=== PATIENT | female | born 1955 | race Caucasian/White ===

== ENCOUNTER 2017-08-26 22:29 | Observation (INO) | payer BC ==
[2017-08-26] MEDS ORDERED: Nitroglycerin 2% Ointment 1 INCH/1 GM Packet ONE (22:49)
--- NOTE | 2017-08-26 23:01 | RAD ---
SINGLE VIEW OF THE CHEST 08/26/17 COMPARISON: 09/07/08 and 03/13/13. HISTORY: Dyspnea and chest pain. FINDINGS: Single view of the chest shows a normal sized cardiomediastinal silhouette. There is no evidence of c onsolidation, mass, or pleural effusion. The bones are unremarkable. IMPRESSION: No evidence of acute cardiopulmonary disease. POS: [facility]
[2017-08-26 23:44] LABS: CKMB 0.8 ng/mL (0-6.6); Troponin I Less than 0.010 ng/mL (< 0.028)
[2017-08-26 23:56] LABS: ALT (SGPT) 21 U/L (8-55); AST (SGOT) 13 U/L (5-34); Albumin 4.2 g/dL (3.4-4.8); Alkaline Phosphatase 67 U/L (40-150); Anion Gap 14 mmol/L (10-20); BUN (Urea Nitrogen) 11 mg/dL (9.8-20.1); Bilirubin, Total 0.3 mg/dL (0.2-1.2); CK (CPK) 66 U/L (29-168); Calc. Creatinine Clearance 0 mL/min (70-130); Calcium 9.3 mg/dL (7.8-10.44); Carbon Dioxide 21 mmol/L (23-31); Chloride 109 mmol/L (98-107); Estimated GFR-MDRD 82; Globulin 2.6 g/dL (2.4-3.5); Glucose 144 mg/dL (80-115); Lipase 23 U/L (8-78); Potassium 3.8 mmol/L (3.5-5.1); Protein, Total 6.8 g/dL (6.0-8.3); Sodium 140 mmol/L (136-145)
[2017-08-27] LABS: Band 2 % (5-11); Eosinophils 3 % (0-10); Hemoglobin 15.1 g/dL (12.0-16.0); Lymphocytes 33 % (21-51); MDiff Complete? YES; Mean Corpuscular HGB CONC 32.2 g/dL (32.0-36.0); Mean Corpuscular Hemoglobin 28.8 pg (27.0-31.0); Mean Corpuscular Volume 89.4 fl (81.0-99.0); Mean Platelet Volume 7.5 fL (7.4-10.4); Monocytes 7 % (0-10); Neutrophil 46 % (42-75); Platelet Count 345 thou/uL (130-400); RBC Distribution Width 11.9 % (11.5-14.5); Reactive Lymphocytes 9 % (0-10); Red Blood Cell (RBC) Count 5.24 mill/uL (4.20-5.40); White Blood Cell (WBC) Count 8.7 thou/uL (4.8-10.8)
[2017-08-27 03:21] VITALS: TEMP 97.8
[2017-08-27 03:31] LABS: Troponin I Less than 0.010 ng/mL (< 0.028)
[2017-08-27] MEDS ORDERED: Ondansetron ODT 4 MG TAB PO PRN (04:59)
[2017-08-27] MEDS ORDERED: Ibuprofen 200 MG TAB PO PRN (05:25)
--- NOTE | 2017-08-27 05:32 | HP ---
CHIEF COMPLAINT: Chest pain. HISTORY OF PRESENT ILLNESS: The patient is a 62-year-old female who presents with on and off chest p ain for the last 2 to 3 weeks. She was recently started on blood pressure medications and she is grayson ing 5 mg of Norvasc once a day. The patient describes chest pain as exertional and is accompanied by shortness of breath. Chest pain upon presentation to the ER was 10/10 and has improved with rest. The patient denied any diaphoresis. She has had some accompanying nausea as well. The patient state s that prior to this, the patient did not have any chest pain. She does have a family history with b oth her parents and her brothers and sisters with heart issues. PAST MEDICAL HISTORY: The patient is significant for lupus. PAST SURGICAL HISTORY: The patient has had cholecystectomy and hysterectomy. SOCIAL HISTORY: Negative for tobacco or alcohol use. ALLERGIES: The patient is allergic to CODEINE, SULFA, and TYLENOL. OUTPATIENT MEDICATIONS: The patient is on Norvasc 5 mg once a day. REVIEW OF SYSTEMS: Please see HPI. Rest of 14-point review of systems is negative. PHYSICAL EXAMINATION: VITAL SIGNS: Temperature is 97.8, pulse 70, respirations 14, blood pressure 146/68, patient satting 97% on room air. GENERAL: The patient is awake, alert, oriented x3, in no acute distress. HEENT: Pupils equal, round, reactive to light and accommodation. Extraocular muscles intact. TMs a re clear. No erythema in throat. NECK: No JVD, lymphadenopathy. HEART: Regular rate and rhythm. LUNGS: Clear to auscultation bilaterally. ABDOMEN: Positive bowel sounds. Soft, nontender, nondistended. EXTREMITIES: No clubbing, cyanosis or edema. LABORATORY AND X-RAY DATA: The patient's CBC, white count is 8.7, H and H 15 and 46 with a platelet of 345. Sodium is 140, potassium 3.8, chloride 109, bicarbonate 21, BUN 11, creatinine 0.7 with a tr oponin of less than 0.010. Lipase is 23. The patient's chest x-ray did not show any abnormalities. No pneumonias were seen. ASSESSMENT AND PLAN: 1. Chest pain. Continue with serial EKGs and enzymes. Further risk stratification depending on res ults. Continue on aspirin. 2. Hypertension. Continue on Norvasc and add beta blockers for better blood pressure control. 3. Code status: The patient is a FULL CODE.
[2017-08-27 05:54] LABS: Troponin I Less than 0.010 ng/mL (< 0.028)
[2017-08-27] MEDS ORDERED: Nitroglycerin 2% Ointment 1 INCH/1 GM Packet TOP SCH (06:00)
[2017-08-27] MEDS ORDERED: Aspirin 325 MG TAB PO SCH (09:00)
[2017-08-27] MEDS ORDERED: Metoprolol Tartrate 25 MG TAB PO SCH (09:00)
[2017-08-27] MEDS ORDERED: Famotidine 20 MG TAB PO SCH (09:00)
[2017-08-27] MEDS ORDERED: Enoxaparin Sodium 30 MG/0.3 ML SYRINGE SC SCH (09:00)
[2017-08-27] MEDS ORDERED: Aspirin 325 mg Enteric Coated Tablet PO SCH (09:00)
[2017-08-27] MEDS ORDERED: Amlodipine 5 MG TAB PO SCH ×2 (09:00→15:30)
[2017-08-27] MEDS ORDERED: ADENOSINE 60 MG/20 ML VIAL ONE (13:47)
--- NOTE | 2017-08-27 15:21 | DIS ---
DATE OF OBSERVATION: 08/26/2017 DATE OF DISCHARGE: 08/27/2017 PRIMARY CARE PHYSICIAN: Harjinder Rios M.D. DISCHARGE DIAGNOSES: 1. Noncardiac chest pain. 2. Hypertension. 3. Systemic lupus erythematosus. 4. Obesity. CONSULTATIONS: None. PROCEDURES: Nuclear stress test negative for reversible ischemia and negative for EKG changes. HOSPITAL COURSE: Ms. Flores is a 62-year-old female who presented to the emergency department 2 to 3 weeks off and on chest pain. She described the chest tightness. Workup in the ER was negative. We were called for admission. HOSPITAL COURSE: She was seen and examined. She was placed in observation with Dr. Sanjay Whalen over night. Serial cardiac biomarkers were negative. I took over the case in the morning. A stress test was ordered and it was negative for inducible ischemia. Blood pressure remained slightly elevated p ost-removal of nitro paste. Her Norvasc was increased to 10 mg. She was discharged home in stable c ondition with outpatient followup with Dr. Rios. She is supposed to call him on 08/29/2017 a [employer]. PHYSICAL EXAMINATION: The patient was seen and examined on the day of discharge. Discharge plan and disposition was discussed with the patient face to face with the family at the bed side. DISCHARGE MEDICATIONS: 1. Norvasc, increased to 10 mg p.o. daily. 2. Aspirin 81 mg [id number] recommended. Followup appointment with Dr. Rios. She is supposed to call his office 08/29/2017. DISCHARGE ACTIVITY: Per cardiopulmonary limits. DISCHARGE DIET: Heart healthy recommended. DISCHARGE CONDITION: Good. DISPOSITION: To be discharged home via private vehicle.
[2017-08-27 15:29] VITALS: BP 145/76
--- NOTE | 2017-08-27 15:40 | NM ---
NUCLEAR MEDICINE CARDIAC STRESS ONLY STUDY WITH EJECTION FRACTION AND WALL MOTION: 08/27/17 HISTORY: 62-year-old female with history of chest pain, shortness of breath and family history of coronary art kassidy disease. Exam was performed as Adenosine Sestamibi study. Patient was injected with 29.1 millicuries technetium 99m Sestamibi intravenously for stress only. No scan evidence for infarct or ischemia. LHR - 0.40. EDV - 70 mL. EF - 72%. Myocardial perfusion wall motion: Wall motion is unremarkable. IMPRESSION: Unremarkable cardiac stress only with unremarkable ejection fraction and wall motion. No scan eviden ce for infarct or ischemia. POS: [facility]
== END 2017-08-27 16:07 | disposition home or self-care (01) ==
LOC: SCSER 22:29 → 2SW 08-27 00:13
PROVIDERS: ADMIT Hospitalist; ATTEND Hospitalist
DX: R07.89 Other chest pain (principal); I10 Essential (primary) hypertension; M32.9 Systemic lupus erythematosus, unspecified; E66.9 Obesity, unspecified; Z68.36 Body mass index [BMI] 36.0-36.9, adult; Z88.5 Allergy status to narcotic agent; Z88.2 Allergy status to sulfonamides; Z88.6 Allergy status to analgesic agent; Z90.49 Acquired absence of other specified parts of digestive tract; Z90.710 Acquired absence of both cervix and uterus
CPT/HCPCS: 36415; 36416; 71045; 78452; 80053; 82553; 83690; 83880; 84484; 85025; 93005; 93017; 96372; A9500; G0378; J0153; J1650; Q0162

== ENCOUNTER 2019-11-22 17:39 | Observation (INO) | payer BC, OTHER ==
[2019-11-22] MEDS ORDERED: Nitroglycerin 2% Ointment 1 INCH/1 GM Packet ONE (18:01)
[2019-11-22] MEDS ORDERED: Aspirin Chewable 81 MG TAB ONE (18:01)
[2019-11-22 18:35] LABS: #Eosinphils 0.1 thou/uL (0.0-0.7); #Monocytes 0.8 thou/uL (0.11-0.59); #Neutrophils 5.2 thou/uL (1.40-6.50); %Basophils 0.6 % (0.0-1.0); %Eosinophils 1.8 % (0.0-10.0); %Monocytes 9.4 % (0.0-10.0); %Neutrophils 64.2 % (42.0-75.0); Hemoglobin 15.5 g/dL (12.0-16.0); Mean Corpuscular HGB CONC 32.9 g/dL (32.0-36.0); Mean Corpuscular Hemoglobin 30.4 pg (27.0-31.0); Mean Corpuscular Volume 92.4 fL (78.0-98.0); Mean Platelet Volume 8.5 fL (7.4-10.4); Platelet Count 322 thou/uL (130-400); RBC Distribution Width 11.8 % (11.5-14.5); Red Blood Cell (RBC) Count 5.11 mill/uL (4.20-5.40); White Blood Cell (WBC) Count 8.2 thou/uL (4.8-10.8)
[2019-11-22 18:56] LABS: ALT (SGPT) 24 U/L (8-55); AST (SGOT) 16 U/L (5-34); Albumin 4.2 g/dL (3.4-4.8); Alkaline Phosphatase 75 U/L (40-110); Anion Gap 11 mmol/L (10-20); BUN (Urea Nitrogen) 14 mg/dL (9.8-20.1); Bilirubin, Total 0.2 mg/dL (0.2-1.2); CK (CPK) 42 U/L (29-168); Calc. Creatinine Clearance 0 mL/min (70-130); Calcium 9.6 mg/dL (7.8-10.44); Carbon Dioxide 28 mmol/L (23-31); Chloride 102 mmol/L (98-107); Estimated GFR-MDRD 72; Globulin 2.8 g/dL (2.4-3.5); Glucose 206 mg/dL (80-115); Lipase 25 U/L (8-78); Potassium 3.9 mmol/L (3.5-5.1); Sodium 137 mmol/L (136-145)
--- NOTE | 2019-11-22 19:16 | RAD ---
PORTABLE CHEST: 11/22/19 HISTORY: Dyspnea. Comparison made to a film of 2018. The exam is limited due to soft tissue attenuation from body habitus. There is question of subtle inf iltrate in the right lower lung. Lungs are otherwise clear. Heart and mediastinum unremarkable. IMPRESSION: Question subtle infiltrate in the right lower lung. If there is suspicion of pneumonia, recommend carlitos rt term follow-up with treatment. POS: [facility]
[2019-11-22 21:18] VITALS: BMI 35.2
[2019-11-22] MEDS ORDERED: Ibuprofen 200 MG TAB PO PRN (22:11)
[2019-11-22] MEDS ORDERED: Dextrose 5% in Water 1,000 ML IV PRN (22:46)
[2019-11-22] MEDS ORDERED: Dextrose 50% Abboject 50 ML SYRINGE SLOW IVP PRN (22:46)
[2019-11-22] MEDS ORDERED: HumaLOG 300 UNITS/3 ML VIAL SC PRN ×2 (22:46)
[2019-11-22] MEDS: Nitroglycerin 2% Ointment 1 INCH/1 GM Packet TOP SCH (23:30)
--- NOTE | 2019-11-22 23:30 | PDOC.HHP ---
Hospitalist HPI - History of Present Illness Worsening shortness of breath History of Present Illness: Patient admitted for chest pain rule out however upon assessment she denies having chest pain. States she has been experiencing gradually worsening shortness of breath for the last 3 days, worse with exertion and now present at rest. Reports having a cough for 3 days which she states is dry. She has felt nauseated and attributed this due elevated blood pressure or recent headaches which she usually gets if her BP is elevated. Patient works on [employer]. ED Course: In the ED she had an EKG done which showed NSR, HR 73. LBBB. No ST changes or T wave abnormalities. She was given 324 mg of aspirin, Nitro bid and 500 mLs of normal saline IV. CXR done in the ER showed a subtle infiltrate in the right lower lung. Initial trop negative. WCC normal. LFTs within normal range. Glucose 206. CK 42. D-dimer was negative. Hospitalist ROS - Review of Systems Constitutional: reports: malaise. denies: fever, chills, sweats, weakness, other Eyes: denies: pain, vision change, conjunctivae inflammation, eyelid inflammation, redness, other ENT: denies: ear pain, ear discharge, nose pain, nose discharge, nose congestion , mouth pain, mouth swelling, throat pain, throat swelling, other Respiratory: reports: cough, dry, other (difficulty taking deep breaths, worsens her cough) Cardiovascular: reports: other (chest tightness with exertion and attempting to take deep breaths.). denies: chest pain, palpitations, orthopnea, paroxysmal noc. dyspnea, edema, light headedness Gastrointestinal: reports: nausea, diarrhea (chronic due to metformin, unchanged ) Genitourinary: denies: dysuria, frequency, incontinence, hematuria, retention, other Musculoskeletal: denies: neck pain, shoulder pain, arm pain, back pain, hand pain, leg pain, foot pain, other Skin: denies: rash, lesions, [place], bruising, other Neurological: denies: weakness, numbness, incoordination, change in speech, confusion, seizures, other - Medication Medications: ALLERGIES: Acetaminophen, Codene, Sulfa CURRENT MEDICATIONS: 1. Valsartan 80 mg PO daily. 2. Metformin 500 mg PO BID. Hospitalist History - Past Medical History Source: patient Cardiac: reports: HTN, Other (Obesity) Rheumatologic: reports: Other (Lupus) Endocrine: reports: Diabetes - Past Surgical History Past Surgical History: reports: Cholecystectomy, Hysterectomy - Family History Family History: reports: Other (CAD in her brothers who all had MIs) - Social History Smoking Status: Never smoker Alcohol: reports: None Drugs: reports: none Living Situation: With Family Activity level: independent ambulation - Exam General - other findings: Visibly short of breath when speaking in long sentences. Eye: PERRL Neck: supple, no lymphadenopathy Heart: RRR, normal peripheral pulses Respiratory: CTAB, no wheezes, no rales, no tachypnea Respiratory - other findings: diminished at bases, she is unable to take deep enough breaths due to cough Gastrointestinal: soft, non-tender, non-distended, normal bowel sounds, no guarding, no rigidity Extremities: no edema Skin: no lesions, no rashes Neurological: cranial nerve grossly intact Musculoskeletal: normal tone, normal strength, no muscle wasting Psychiatric: normal affect, normal behavior, A&O x 3 Hospitalist Results - Labs Result Diagrams: 11/22/19 18:12 11/22/19 18:12 Lab results: WBC 8.2 thou/uL (4.8-10.8) 11/22/19 18:12 Hgb 15.5 g/dL (12.0-16.0) 11/22/19 18:12 Hct 47.3 % (36.0-47.0) H 11/22/19 18:12 MCV 92.4 fL (78.0-98.0) 11/22/19 18:12 Plt Count 322 thou/uL (130-400) 11/22/19 18:12 Neutrophils % 64.2 % (42.0-75.0) 11/22/19 18:12 Sodium 137 mmol/L (136-145) 11/22/19 18:12 Potassium 3.9 mmol/L (3.5-5.1) 11/22/19 18:12 Chloride 102 mmol/L (98-107) 11/22/19 18:12 Carbon Dioxide 28 mmol/L (23-31) 11/22/19 18:12 BUN 14 mg/dL (9.8-20.1) 11/22/19 18:12 Creatinine 0.80 mg/dL (0.6-1.1) 11/22/19 18:12 Glucose 206 mg/dL (80-115) H 11/22/19 18:12 Calcium 9.6 mg/dL (7.8-10.44) 11/22/19 18:12 Total Bilirubin 0.2 mg/dL (0.2-1.2) 11/22/19 18:12 AST 16 U/L (5-34) 11/22/19 18:12 ALT 24 U/L (8-55) 11/22/19 18:12 Alkaline Phosphatase 75 U/L (40-110) 11/22/19 18:12 Creatine Kinase 42 U/L (29-168) 11/22/19 18:12 Troponin I 0.010 ng/mL (< 0.028) 11/22/19 21:18 B-Natriuretic Peptide Less than 10.0 pg/mL (0-100) 11/22/19 18:12 Serum Total Protein 7.0 g/dL (6.0-8.3) 11/22/19 18:12 Albumin 4.2 g/dL (3.4-4.8) 11/22/19 18:12 Lipase 25 U/L (8-78) 11/22/19 18:12 Hospitalist H&P A/P - Problem (1) Shortness of breath Code(s): R06.02 - SHORTNESS OF BREATH Status: Acute (2) Cough Code(s): R05 - COUGH Status: Acute (3) Nausea Code(s): R11.0 - NAUSEA Status: Acute (4) Headache Code(s): R51 - HEADACHE Status: Acute (5) Essential hypertension Code(s): I10 - ESSENTIAL (PRIMARY) HYPERTENSION Status: Chronic (6) Diabetes mellitus Code(s): E11.9 - TYPE 2 DIABETES MELLITUS WITHOUT COMPLICATIONS Status: Chronic Qualifiers: Diabetes mellitus type: type 2 Diabetes mellitus complication status: without complication (7) Obesity Code(s): E66.9 - OBESITY, UNSPECIFIED Status: Chronic (8) Family history of coronary artery disease Code(s): Z82.49 - FAMILY HX OF ISCHEM HEART DIS AND OTH DIS OF THE CIRC SYS Status: Chronic - Plan Plan: SOB associated with cough and 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 Miller. She has had gradual worsening in shortness of breath and unable to take deep breaths with questionable infiltrate on CXR. No evidence of fluid overload or history of HF. BNP added on. Consider echo. Consider CT imaging if clinically worsens. Will add lactic acid. Cardiac monitoring and continue to trend troponins. ISS initiated and we will continue to monitor glucose. Monitor BP. Reconcile home medications once verified. CODE STATUS: FULL Surrogate decision maker is her Cameron Flores.
[2019-11-23 00:28] LABS: Lactic Acid 1.5 mmol/L (0.5-2.2)
[2019-11-23 01:01] LABS: Troponin I 0.023 ng/mL (< 0.028)
[2019-11-23 04:43] LABS: #Basophils 0.1 thou/uL (0.0-0.2); #Eosinphils 0.1 thou/uL (0.0-0.7); #Lymphocytes 1.5 thou/uL (1.20-3.40); #Monocytes 0.8 thou/uL (0.11-0.59); #Neutrophils 6.9 thou/uL (1.40-6.50); %Basophils 0.7 % (0.0-1.0); %Eosinophils 1.2 % (0.0-10.0); %Lymphocytes 16.2 % (21.0-51.0); %Monocytes 8.3 % (0.0-10.0); %Neutrophils 73.7 % (42.0-75.0); Hemoglobin 14.1 g/dL (12.0-16.0); Mean Corpuscular HGB CONC 31.8 g/dL (32.0-36.0); Mean Corpuscular Hemoglobin 29.5 pg (27.0-31.0); Mean Corpuscular Volume 92.7 fL (78.0-98.0); Mean Platelet Volume 8.4 fL (7.4-10.4); Platelet Count 310 thou/uL (130-400); RBC Distribution Width 11.9 % (11.5-14.5); Red Blood Cell (RBC) Count 4.78 mill/uL (4.20-5.40); White Blood Cell (WBC) Count 9.3 thou/uL (4.8-10.8)
[2019-11-23 05:14] LABS: ALT (SGPT) 20 U/L (8-55); AST (SGOT) 18 U/L (5-34); Albumin 3.6 g/dL (3.4-4.8); Alkaline Phosphatase 63 U/L (40-110); Anion Gap 14 mmol/L (10-20); BUN (Urea Nitrogen) 12 mg/dL (9.8-20.1); Bilirubin, Total 0.5 mg/dL (0.2-1.2); Calc. Creatinine Clearance 113 mL/min (70-130); Calcium 8.8 mg/dL (7.8-10.44); Carbon Dioxide 22 mmol/L (23-31); Chloride 104 mmol/L (98-107); Cholesterol 194 mg/dl (< 200 Desired); Estimated GFR-MDRD 79; Globulin 2.7 g/dL (2.4-3.5); Glucose 225 mg/dL (80-115); HDL Cholesterol 48 mg/dL (>60 Neg Risk); LDL Cholesterol, Calculated 116 mg/dL; Potassium 4.5 mmol/L (3.5-5.1); Protein, Total 6.3 g/dL (6.0-8.3); Sodium 135 mmol/L (136-145); Triglycerides 151 mg/dL (Less than 150)
[2019-11-23] MEDS: cefTRIAXone\\ROCEPHIN 1 GM in Sodium Chloride 0.9% 100 ML IVPB SCH (06:11)
[2019-11-23] MEDS: Nitroglycerin 2% Ointment 1 INCH/1 GM Packet TOP SCH (06:12)
[2019-11-23] MEDS: Azithromycin 250 MG TAB PO SCH (06:12)
[2019-11-23] MEDS ORDERED: Promethazine HCl 25 MG in Sodium Chloride 0.9% 50 ML IVPB PRN (07:37)
[2019-11-23] MEDS ORDERED: Promethazine 25 MG TAB PO PRN (07:37)
[2019-11-23] MEDS: Valsartan 80 MG TAB PO SCH (07:50)
[2019-11-23] MEDS ORDERED: Prevnar 13-Val Conj/PF 0.5 ML SYRINGE IM ONE (09:00)
--- NOTE | 2019-11-23 10:33 | PDOC.HOSPP ---
- Subjective Encounter Date: 11/23/19 Encounter Time: 10:31 Subjective: Ms. Flores was seen today in follow-up of shortness of breath. She continues to feel a bit dyspneic. She denies chest pain. She continues to have some cough off and on. she denies any leg pain or swelling. - Objective Vital Signs & Weight: Vital Signs (12 hours) Temp Pulse Resp BP Pulse Ox 11/23/19 08:04 96.6 F L 74 19 133/67 96 11/23/19 04:00 96.5 F L 71 16 170/80 H 95 11/23/19 00:00 144/66 H Weight Weight 205 lb 2 oz I&O: 11/22/19 11/23/19 11/24/19 06:59 06:59 06:59 Intake Total 480 Output Total 275 Balance 205 Result Diagrams: 11/23/19 04:02 11/23/19 04:02 Additional Labs: Accuchecks 11/23/19 06:27 POC Glucose 212 H Hospitalist ROS - Medication Medications: Active Medications Generic Name Dose Route Start Last Admin Trade Name Freq PRN Reason Stop Dose Admin Azithromycin 500 mg 11/23/19 05:00 11/23/19 06:12 Zithromax PO 500 mg 0500 ESSENCE Administration Ceftriaxone Sodium 1 gm/ 100 mls @ 200 mls/hr 11/23/19 05:00 11/23/19 06:11 Sodium Chloride IVPB 100 mls 0500 ESSENCE Administration Ibuprofen 400 mg 11/22/19 22:11 11/22/19 23:30 Motrin PO 400 mg Q4H PRN Administration Fever/Mild Pain Promethazine HCl 25 mg 11/23/19 07:37 11/23/19 08:00 Phenergan PO 25 mg Q6H PRN Administration Nausea/Vomiting Valsartan 80 mg 11/23/19 09:00 11/23/19 07:50 Diovan PO 80 mg DAILY ESSENCE Administration - Exam Eye: PERRL Heart: RRR (heart tones are distant), no murmur, no gallops, no rubs, normal peripheral pulses Respiratory: CTAB, no wheezes, no rales, no ronchi, normal chest expansion Gastrointestinal: soft, non-tender, non-distended, normal bowel sounds Extremities: no cyanosis, no clubbing (good dorsalis pedis plses bilaterally, good capillary refill in the toes, feet warm and dry, no skin lesions), no edema Hosp A/P (1) Cough Code(s): R05 - COUGH Status: Acute (2) Shortness of breath Code(s): R06.02 - SHORTNESS OF BREATH Status: Acute (3) Diabetes mellitus Code(s): E11.9 - TYPE 2 DIABETES MELLITUS WITHOUT COMPLICATIONS Status: Chronic Qualifiers: Diabetes mellitus type: type 2 Diabetes mellitus complication status: without complication (4) Essential hypertension Code(s): I10 - ESSENTIAL (PRIMARY) HYPERTENSION Status: Chronic (5) Obesity Code(s): E66.9 - OBESITY, UNSPECIFIED Status: Chronic Qualifiers: Body mass index: BMI 35.0-35.9 - Plan * Cough and shortness of breath- possible bronchitis vs. early pneumonia- continue Azithromycin and Rocephin * COVID screen is pedning * Continue droplet isolation * HTN- blood pressure was elevated this AM, but now trending down- continue Valsartan, and prn medications * DM- continue SSI *
[2019-11-23 11:37] LABS: SARS-CoV-2 MS2 Positive; SARS-CoV-2 N Gene Negative; SARS-CoV-2 S Gene Negative; SARS-CoV-2 orf1ab Negative
--- NOTE | 2019-11-23 14:33 | EKG ---
Test Reason : Blood Pressure : / mmHG Vent. Rate : 073 BPM Atrial Rate : 073 BPM P-R Int : 160 ms QRS Dur : 146 ms QT Int : 414 ms P-R-T Axes : 042 -10 061 degrees QTc Int : 456 ms Normal sinus rhythm Left bundle branch block Abnormal ECG Confirmed by JAVIER ESPINAL, EDWIN ([id number]), film and video editor MARKY NOVAK ([id number]) on 11/23/2019 2:33:12 PM Referred By: Confirmed By:EDWIN HERRERA MD
[2019-11-23] MEDS: Famotidine 20 MG TAB PO SCH (20:50)
[2019-11-24 04:43] LABS: #Basophils 0.1 thou/uL (0.0-0.2); #Eosinphils 0.2 thou/uL (0.0-0.7); #Lymphocytes 1.9 thou/uL (1.20-3.40); #Monocytes 0.8 thou/uL (0.11-0.59); #Neutrophils 3.8 thou/uL (1.40-6.50); %Basophils 1.1 % (0.0-1.0); %Eosinophils 2.8 % (0.0-10.0); %Lymphocytes 28.6 % (21.0-51.0); %Monocytes 11.4 % (0.0-10.0); %Neutrophils 56.2 % (42.0-75.0); Hemoglobin 14.8 g/dL (12.0-16.0); Mean Corpuscular HGB CONC 33.1 g/dL (32.0-36.0); Mean Corpuscular Hemoglobin 30.5 pg (27.0-31.0); Mean Corpuscular Volume 92.1 fL (78.0-98.0); Mean Platelet Volume 8.3 fL (7.4-10.4); Platelet Count 292 thou/uL (130-400); RBC Distribution Width 11.9 % (11.5-14.5); Red Blood Cell (RBC) Count 4.87 mill/uL (4.20-5.40); White Blood Cell (WBC) Count 6.8 thou/uL (4.8-10.8)
[2019-11-24 05:02] LABS: Anion Gap 13 mmol/L (10-20); BUN (Urea Nitrogen) 10 mg/dL (9.8-20.1); Calc. Creatinine Clearance 125 mL/min (70-130); Calcium 8.7 mg/dL (7.8-10.44); Carbon Dioxide 21 mmol/L (23-31); Chloride 107 mmol/L (98-107); Estimated GFR-MDRD 89; Glucose 169 mg/dL (80-115); Potassium 3.9 mmol/L (3.5-5.1); Sodium 137 mmol/L (136-145)
[2019-11-24] MEDS: cefTRIAXone\\ROCEPHIN 1 GM in Sodium Chloride 0.9% 100 ML IVPB SCH (05:21)
[2019-11-24] MEDS: Azithromycin 250 MG TAB PO SCH (05:21)
[2019-11-24] MEDS: Valsartan 80 MG TAB PO SCH (07:57)
[2019-11-24] MEDS: Enoxaparin Sodium 40 MG/0.4 ML SYRINGE SC SCH (07:57)
[2019-11-24] MEDS: Famotidine 20 MG TAB PO SCH ×2 (07:57→21:04)
[2019-11-24] MEDS ORDERED: Furosemide 20 MG/2 ML VIAL SLOW IVP SCH (08:45)
[2019-11-24] MEDS: metFORMIN 500 MG TAB PO SCH ×2 (09:06→21:04)
[2019-11-24 09:51] LABS: ALT (SGPT) 21 U/L (8-55); AST (SGOT) 16 U/L (5-34); Albumin 3.9 g/dL (3.4-4.8); Alkaline Phosphatase 77 U/L (40-110); Bilirubin, Direct 0.2 mg/dL (0.1-0.3); Bilirubin, Total 0.5 mg/dL (0.2-1.2); Protein, Total 6.7 g/dL (6.0-8.3)
--- NOTE | 2019-11-24 10:25 | RAD ---
CHEST ONE VIEW: HISTORY: Shortness of breath. COMPARISON: Radiograph from 11/22/2019. FINDINGS: The lungs are clear. No pneumothorax. No effusion. Mild lung hypoinflation with atelectasis. No acute osseous abnormality. IMPRESSION: No acute intrathoracic abnormality. POS: [facility]
[2019-11-24 11:54] LABS: Troponin I 0.014 ng/mL (< 0.028)
--- NOTE | 2019-11-24 13:14 | PDOC.HOSPP ---
- Subjective Encounter Date: 11/24/19 Encounter Time: 12:30 Subjective: pt up in bed still complains of sob. However this is subjective. She is not using any oxygen. - Objective Vital Signs & Weight: Vital Signs (12 hours) Temp Pulse Resp BP BP Pulse Ox 11/24/19 11:23 98.1 F 73 16 184/82 H 99 11/24/19 07:06 97.8 F 73 16 182/79 H 98 11/24/19 04:00 97.7 F 77 18 133/61 93 L Weight Weight 205 lb 11.2 oz I&O: 11/23/19 11/24/19 11/25/19 06:59 06:59 06:59 Intake Total 480 1560 Output Total 275 1420 Balance 205 140 Result Diagrams: 11/24/19 04:03 11/24/19 04:03 Additional Labs: Accuchecks 11/24/19 11/24/19 11/23/19 10:51 05:42 20:44 POC Glucose 177 H 159 H 266 H 11/23/19 16:37 POC Glucose 142 H Hospitalist ROS - Review of Systems ENT: reports: other (hoarsness) Cardiovascular: denies: chest pain, palpitations, orthopnea, paroxysmal noc. dyspnea, edema, light headedness, other Gastrointestinal: denies: nausea, vomiting, abdominal pain, diarrhea, constipation, melena, hematochezia, other Genitourinary: denies: dysuria, frequency, incontinence, hematuria, retention, other - Medication Medications: Active Medications Generic Name Dose Route Start Last Admin Trade Name Freq PRN Reason Stop Dose Admin Azithromycin 500 mg 11/23/19 05:00 11/24/19 05:21 Zithromax PO 500 mg 0500 ESSENCE Administration Enoxaparin Sodium 40 mg 11/24/19 09:00 11/24/19 07:57 Lovenox SC 40 mg 0900 ESSENCE Administration Famotidine 20 mg 11/23/19 21:00 11/24/19 07:57 Pepcid PO Not Given BID ESSENCE Ceftriaxone Sodium 1 gm/ 100 mls @ 200 mls/hr 11/23/19 05:00 11/24/19 05:21 Sodium Chloride IVPB 100 mls 0500 ESSENCE Administration Ibuprofen 400 mg 11/22/19 22:11 11/22/19 23:30 Motrin PO 400 mg Q4H PRN Administration Fever/Mild Pain Metformin HCl 500 mg 11/24/19 09:00 11/24/19 09:06 Glucophage PO 500 mg BID ESSENCE Administration Promethazine HCl 25 mg 11/23/19 07:37 11/23/19 08:00 Phenergan PO 25 mg Q6H PRN Administration Nausea/Vomiting Valsartan 80 mg 11/23/19 09:00 11/24/19 07:57 Diovan PO 80 mg DAILY ESSENCE Administration - Exam Neck: negative: supple, symmetric, no JVD, no thyromegaly, no lymphadenopathy, no carotid bruit, JVD Heart: negative: RRR, no murmur, no gallops, no rubs, normal peripheral pulses, irregular, diminshed peripheral pulses, murmur present, II/IV, III/IV Respiratory: negative: CTAB, no wheezes, no rales, no ronchi, normal chest expansion, no tachypnea, normal percussion, rales, rhonchi, tachypneic, wheezes Hosp A/P (1) Shortness of breath Code(s): R06.02 - SHORTNESS OF BREATH Status: Acute (2) Diabetes mellitus Code(s): E11.9 - TYPE 2 DIABETES MELLITUS WITHOUT COMPLICATIONS Status: Chronic Qualifiers: Diabetes mellitus type: type 2 Diabetes mellitus complication status: without complication (3) Essential hypertension Code(s): I10 - ESSENTIAL (PRIMARY) HYPERTENSION Status: Chronic (4) Obesity Code(s): E66.9 - OBESITY, UNSPECIFIED Status: Chronic Qualifiers: Body mass index: BMI 35.0-35.9 - Plan pt's repeat cxr improved, will give one dose of lasix to see if it helps her sob. She has no elevated wbc/or worsening lower ext edema. unclear etiology for her sob. She is not hypoxic. will ask the nurse to ambulate her in hallway. she does have hoarseness and states that at times she gets that. she has no hx of smoking. will get a echo to evalutae. Her covid is negative. trops negative, low d-dimer. she does have a non productive cough which could be due to her bp meds. pt states that at baseline she is active.
[2019-11-24] MEDS ORDERED: Loratadine 10 MG TAB PO SCH (13:30)
[2019-11-24] MEDS ORDERED: Amlodipine 10 MG TAB PO SCH (13:30)
[2019-11-24] MEDS ORDERED: hydrALAZINE 20 MG/ML VIAL SLOW IVP PRN (15:22)
[2019-11-25] MEDS: cefTRIAXone\\ROCEPHIN 1 GM in Sodium Chloride 0.9% 100 ML IVPB SCH (05:32)
[2019-11-25] MEDS: Azithromycin 250 MG TAB PO SCH (05:32)
[2019-11-25] MEDS: metFORMIN 500 MG TAB PO SCH (08:00)
[2019-11-25] MEDS: Valsartan 80 MG TAB PO SCH (08:00)
[2019-11-25] MEDS: Famotidine 20 MG TAB PO SCH (08:01)
[2019-11-25] MEDS: Enoxaparin Sodium 40 MG/0.4 ML SYRINGE SC SCH (08:01)
[2019-11-25] MEDS ORDERED: Amlodipine 10 MG TAB PO SCH (09:00)
[2019-11-25] MEDS ORDERED: Loratadine 10 MG TAB PO SCH (09:00)
[2019-11-25] MEDS ORDERED: Furosemide 20 MG/2 ML VIAL SLOW IVP SCH (09:00)
[2019-11-25 15:41] VITALS: BP 123/65; TEMP 97.5
--- NOTE | 2019-11-26 00:46 | DIS ---
DATE OF ADMISSION: 11/22/2019 DATE OF DISCHARGE: 11/25/2019 DISCHARGE DIAGNOSES: As of the followin. Shortness of breath, most likely secondary to flash pulmonary edema versus possible bronchitis. 2. Hypertension. 3. Obesity. 4. Diabetes. 5. Hypertension. HOSPITAL COURSE: The patient is a 64-year-old female who initially presented to the hospital with complaints of shortness of breath and elevated BP. 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 Her COVID test was negative. Her chest x-ray initially indicated some may be a possible infiltrate in the right lower lung. However, upon repeat x-ray on 11/23, that infiltrate actually improved. She was given also some diuretics x2 doses. Initially when she presented to the hospital, her blood pressure was systolic in the 200s. The patient's blood pressure here has been monitored and also a new antihypertensive has been added. She was never hypoxic. We did an echocardiogram which indicated an EF of 60% to 65%, grade 1/3 diastolic dysfunction, mild dilated left atrium and mild regurgitation. She also had a D-dimer test which was negative, and that is why no CTA was done. She had no significant leukocytosis. She had no neutrophilia either. Her troponin x3 was completely normal. Her BNP also was normal. Her procalcitonin was 0.02. She felt great after the diuretics. She was able to ambulate without any issues, and she will be discharged home. HOME MEDICATIONS: Will be, 1. Norvasc 10 mg daily. 2. Metformin 500 mg twice a day. 3. Valsartan 80 mg daily. 4. Doxycycline 100 mg twice a day for 5 days. PHYSICAL EXAMINATION: VITAL SIGNS: 97.6, 75, 18, 96% on room air, 127/60. GENERAL: She is awake, alert, and oriented x3. Does not appear in any distress. CV: S1, S2 present. No murmurs, rubs, or gallops. Again, she will be discharged home. She will follow up with her primary. She has been in normal sinus rhythm on the monitor. 30 minutes was spent discharging this patient. Job ID: [id number]
== END 2019-11-25 17:20 | disposition home or self-care (01) ==
LOC: ERS 17:39 → 2NO 19:37
PROVIDERS: ADMIT Family Medicine; ATTEND Internal Medicine
DX: R06.02 Shortness of breath (principal); I10 Essential (primary) hypertension; I25.10 Atherosclerotic heart disease of native coronary artery without angina pectoris; E11.9 Type 2 diabetes mellitus without complications; E66.9 Obesity, unspecified; Z68.35 Body mass index [BMI] 35.0-35.9, adult; Z79.84 Long term (current) use of oral hypoglycemic drugs; Z88.2 Allergy status to sulfonamides; Z88.5 Allergy status to narcotic agent; Z88.6 Allergy status to analgesic agent; Z88.8 Allergy status to other drugs, medicaments and biological substances; Z11.59 Encounter for screening for other viral diseases
CPT/HCPCS: 36415; 36416; 71045; 80048; 80053; 80061; 80076; 82550; 83605; 83690; 83880; 84145; 84443; 84484; 85025; 85379; 86140; 87040; 87633; 87635; 90471; 90670; 93005; 93306; 96365; 96372; 96375; 96376; G0009; G0378; J0360; J0696; J1650; J1940; J3490; Q0169; U0003

== ENCOUNTER 2020-04-03 11:21 | Outpatient (CLI) | payer BC ==
--- NOTE | 2020-04-03 13:54 | MMO ---
Bilateral MAMMO Bilat Screen [facility]. CLINICAL HISTORY: Patient is 64 years old and is seen for screening. The patient has no family history of breast cancer. The patient has no personal history of cancer. VIEWS: The views performed were: bilateral craniocaudal with tomosynthesis and bilateral mediolateral oblique with tomosynthesis. FILMS COMPARED: The present examination has been compared to prior imaging studies performed at [facility] on 02/18/2012, and at [facility] on 09/19/2002, 05/07/2004 and 04/18/2006. This study has been interpreted with the assistance of computer-aided detection. MAMMOGRAM FINDINGS: There are scattered fibroglandular densities. There are no suspicious masses, suspicious calcifications, or new areas of architectural distortion. IMPRESSION: THERE IS NO MAMMOGRAPHIC EVIDENCE OF MALIGNANCY. A ROUTINE FOLLOW-UP MAMMOGRAM IN 1 YEAR IS RECOMMENDED. THE RESULTS OF THIS EXAM WERE SENT TO THE PATIENT. ACR BI-RADS Category 1 - Negative MAMMOGRAPHY NOTE: 1. A negative mammogram report should not delay a biopsy if a dominant of clinically suspicious mass is present. 2. Approximately 10% to 15% of breast cancers are not detected by mammography. 3. Adenosis and dense breasts may obscure an underlying neoplasm. Reported by: KIM HARO MD Electonically Signed: [id number]
== END 2020-04-03 11:22 | disposition home or self-care (01) ==
LOC: BICMAMMO 11:21
PROVIDERS: ATTEND Internal Medicine
DX: Z12.31 Encounter for screening mammogram for malignant neoplasm of breast (principal)
CPT/HCPCS: 77063; 77067

== ENCOUNTER 2020-06-17 09:34 | Emergency (ER) | payer BC, MEDICARE ==
--- NOTE | 2020-06-17 10:05 | RAD ---
PA AND LATERAL VIEWS CHEST: Date: 06/17/2020 HISTORY: Dizziness. FINDINGS: Comparison made with exam of 11/24/2019. The heart size is normal. The lungs are well expanded without lobar consolidation, pneumothoraces, fr ank pulmonary edema, or pleural effusions. No acute osseous abnormalities are seen. IMPRESSION: No acute process. POS: OFF
--- NOTE | 2020-06-17 11:19 | CT ---
CT BRAIN WITHOUT CONTRAST: HISTORY: Altered mental status and dizziness FINDINGS: No evidence of acute infarct, hemorrhage, midline shift or abnormal extra-axial fluid collections is seen. The ventricular size is appropriate and the basilar cisterns are patent. The bony calvarium is intact. The visualized paranasal sinuses and mastoid air cells are well aerated. IMPRESSION: No CT evidence of acute intracranial process.
[2020-06-17 11:21] LABS: #Eosinphils 0.1 thou/uL (0.0-0.7); #Lymphocytes 1.4 thou/uL (1.20-3.40); #Monocytes 0.4 thou/uL (0.11-0.59); #Neutrophils 4.4 thou/uL (1.40-6.50); %Basophils 0.3 % (0.0-1.0); %Eosinophils 1.4 % (0.0-10.0); %Lymphocytes 21.9 % (21.0-51.0); %Monocytes 6.2 % (0.0-10.0); %Neutrophils 70.2 % (42.0-75.0); Hemoglobin 15.7 g/dL (12.0-16.0); Mean Corpuscular HGB CONC 30.7 g/dL (32.0-36.0); Mean Corpuscular Hemoglobin 27.5 pg (27.0-31.0); Mean Corpuscular Volume 89.8 fL (78.0-98.0); Mean Platelet Volume 8.2 fL (7.4-10.4); Platelet Count 355 thou/uL (130-400); White Blood Cell (WBC) Count 6.2 thou/uL (4.8-10.8)
[2020-06-17 11:42] LABS: CK (CPK) 61 U/L (29-168); Lipase 20 U/L (8-78)
[2020-06-17 11:43] LABS: ALT (SGPT) 21 U/L (8-55); AST (SGOT) 17 U/L (5-34); Albumin 4.1 g/dL (3.4-4.8); Alkaline Phosphatase 66 U/L (40-110); Anion Gap 11 mmol/L (10-20); BUN (Urea Nitrogen) 10 mg/dL (9.8-20.1); Bilirubin, Total 0.6 mg/dL (0.2-1.2); Calc. Creatinine Clearance 0 mL/min (70-130); Calcium 9.1 mg/dL (7.8-10.44); Carbon Dioxide 26 mmol/L (23-31); Chloride 104 mmol/L (98-107); Estimated GFR-MDRD 76; Globulin 3.3 g/dL (2.4-3.5); Glucose 204 mg/dL (80-115); Potassium 4.3 mmol/L (3.5-5.1); Protein, Total 7.4 g/dL (6.0-8.3); Sodium 137 mmol/L (136-145)
[2020-06-17] MEDS ORDERED: Lorazepam 2 MG/ML VIAL ONE (12:35)
[2020-06-17] MEDS ORDERED: Metoclopramide 10 MG/10 ML UDCUP ONE (13:01)
[2020-06-17] MEDS ORDERED: Metoclopramide HCl 10 MG/2 ML VIAL ONE (13:01)
[2020-06-17] MEDS ORDERED: diphenhydrAMINE 50 MG/ML VIAL ONE (13:01)
[2020-06-17 13:09] LABS: Bilirubin Negative (Negative); Blood, Urine Negative (Negative); Clarity Clear (Clear); Glucose, Urine (Dipstick) 70 mg/dL (Negative); Ketone, Urine Negative (Negative); Leukocyte Negative Leu/uL (Negative); Nitrite Negative (Negative); Protein, Urine (Dipstick) Negative (Neg-Trace); Specific Gravity, Urine 1.007 (1.002-1.036); Urobilinogen Normal mg/dL (Less than 2); pH, Urine 6.5 (5.0-9.0)
== END 2020-06-17 14:01 | disposition home or self-care (01) ==
LOC: ERS 09:34
DX: R42 Dizziness and giddiness (principal); R51.9 Headache, unspecified; I10 Essential (primary) hypertension; Z79.84 Long term (current) use of oral hypoglycemic drugs; Z79.899 Other long term (current) drug therapy
CPT/HCPCS: 70450; 71046; 80053; 81003; 82550; 83690; 84484; 85025; 93005; 96374; 96375; 96376; J1200; J2060; J2765

== ENCOUNTER 2020-11-17 09:05 | Observation (INO) | payer BC, MEDICARE ==
[2020-11-17] MEDS ORDERED: Aspirin Chewable 81 MG TAB ONE (09:41)
[2020-11-17 10:06] LABS: #Basophils 0.1 thou/uL (0.0-0.2); #Eosinphils 0.1 thou/uL (0.0-0.7); #Lymphocytes 1.7 thou/uL (1.20-3.40); #Monocytes 0.6 thou/uL (0.11-0.59); #Neutrophils 3.6 thou/uL (1.40-6.50); %Basophils 1.2 % (0.0-1.0); %Eosinophils 2.3 % (0.0-10.0); %Lymphocytes 28.3 % (21.0-51.0); %Monocytes 10.4 % (0.0-10.0); %Neutrophils 57.9 % (42.0-75.0); Hemoglobin 15.2 g/dL (12.0-16.0); Mean Corpuscular HGB CONC 32.8 g/dL (32.0-36.0); Mean Corpuscular Hemoglobin 29.9 pg (27.0-31.0); Mean Platelet Volume 8.1 fL (7.4-10.4); Platelet Count 321 thou/uL (130-400); RBC Distribution Width 11.8 % (11.5-14.5); White Blood Cell (WBC) Count 6.2 thou/uL (4.8-10.8)
[2020-11-17 10:21] LABS: ALT (SGPT) 20 U/L (8-55); AST (SGOT) 17 U/L (5-34); Albumin 3.9 g/dL (3.4-4.8); Alkaline Phosphatase 60 U/L (40-110); Anion Gap 13 mmol/L (10-20); BUN (Urea Nitrogen) 12 mg/dL (9.8-20.1); Bilirubin, Total 0.5 mg/dL (0.2-1.2); Calc. Creatinine Clearance 0 mL/min (70-130); Calcium 9.5 mg/dL (7.8-10.44); Carbon Dioxide 24 mmol/L (23-31); Chloride 104 mmol/L (98-107); Globulin 2.8 g/dL (2.4-3.5); Glucose 145 mg/dL (80-115); Magnesium 1.9 mg/dL (1.6-2.6); Potassium 4.2 mmol/L (3.5-5.1); Protein, Total 6.7 g/dL (5.8-8.1); Sodium 137 mmol/L (136-145)
[2020-11-17 11:46] LABS: Hemoglobin A1c 8.8 % (4.0-6.0)
[2020-11-17 12:02] LABS: SARS-CoV-2 NAA Rapid Test Not Detected (NotDetected)
[2020-11-17 12:56] VITALS: BMI 32.2
[2020-11-17 14:18] LABS: Troponin I 0.011 ng/mL (< 0.028)
[2020-11-17] MEDS ORDERED: Dextrose 50% Abboject 50 ML SYRINGE SLOW IVP PRN (15:08)
[2020-11-17] MEDS ORDERED: Dextrose 5% in Water 1,000 ML IV PRN (15:08)
[2020-11-17] MEDS ORDERED: Insulin Regular 300 UNITS/3 ML VIAL SC PRN ×2 (15:08)
[2020-11-17 17:16] LABS: Troponin I Less than 0.010 ng/mL (< 0.028)
[2020-11-17] MEDS: Nitroglycerin 2% Ointment 1 INCH/1 GM Packet TOP SCH (19:53)
[2020-11-17] MEDS: metFORMIN XR 500 MG TAB PO SCH (19:53)
[2020-11-18 05:50] LABS: Cardiac Risk 4.3 (Less than 4.5)
[2020-11-18] MEDS: Nitroglycerin 2% Ointment 1 INCH/1 GM Packet TOP SCH (08:01)
[2020-11-18] MEDS: metFORMIN XR 500 MG TAB PO SCH (08:27)
[2020-11-18] MEDS ORDERED: Valsartan 80 MG TAB PO SCH (09:00)
[2020-11-18] MEDS ORDERED: Aspirin Chewable 81 MG TAB PO SCH (09:00)
[2020-11-18] MEDS ORDERED: ADENOSINE 60 MG/20 ML VIAL ONE (11:50)
[2020-11-18 16:37] VITALS: BP 139/74; TEMP 98.1
== END 2020-11-18 17:10 | disposition home or self-care (01) ==
LOC: ERS 09:05 → 2SW 10:54
PROVIDERS: ADMIT Internal Medicine; ATTEND Internal Medicine
DX: R07.89 Other chest pain (principal); I10 Essential (primary) hypertension; E11.9 Type 2 diabetes mellitus without complications; M32.9 Systemic lupus erythematosus, unspecified; Z79.84 Long term (current) use of oral hypoglycemic drugs; Z79.899 Other long term (current) drug therapy; Z88.2 Allergy status to sulfonamides; Z88.5 Allergy status to narcotic agent; Z88.6 Allergy status to analgesic agent; Z88.8 Allergy status to other drugs, medicaments and biological substances; Z20.822 Contact with and (suspected) exposure to COVID-19
CPT/HCPCS: 0240U; 36415; 36416; 71045; 78452; 80053; 80061; 83036; 83735; 83880; 84443; 84484; 85025; 93005; 93017; A9500; G0378; J0153

== ENCOUNTER 2021-02-27 12:47 | Outpatient (CLI) | payer BC | END 2021-02-27 12:48 | disposition home or self-care (01) | LOC: BICULT 12:47 | PROVIDERS: ATTEND Internal Medicine | DX: G45.9 Transient cerebral ischemic attack, unspecified (principal) | CPT/HCPCS: 93880 ==

== ENCOUNTER 2022-02-02 09:52 | Outpatient (CLI) | payer MEDICARE | END 2022-02-02 09:53 | disposition home or self-care (01) | LOC: BICMAMMO 09:52 | PROVIDERS: ATTEND Internal Medicine | DX: Z12.31 Encounter for screening mammogram for malignant neoplasm of breast (principal) | CPT/HCPCS: 77063; 77067 ==

== ENCOUNTER 2023-03-30 10:42 | Outpatient (CLI) | payer MEDICARE | END 2023-03-30 10:43 | disposition home or self-care (01) | LOC: BICMAMMO 10:42 | PROVIDERS: ATTEND Family Medicine | DX: Z12.31 Encounter for screening mammogram for malignant neoplasm of breast (principal); Z13.820 Encounter for screening for osteoporosis; E28.39 Other primary ovarian failure; Z78.0 Asymptomatic menopausal state | CPT/HCPCS: 77063; 77067; 77080 ==

== ENCOUNTER 2024-05-04 13:49 | Observation (INO) | payer MEDICARE ==
[2024-05-04 14:46] LABS: #Basophils 0.08 10x3/uL (0.0-0.2); %Basophils 1.4 % (0.0-1.0); %Eosinophils 1.5 % (0.0-10.0); %Lymphocytes 29.1 % (21.0-51.0); %Monocytes 9.5 % (0.0-10.0); %Neutrophils 58.3 % (42.0-75.0); Hematocrit 40.9 % (36.0-47.0); Hemoglobin 13.4 g/dL (12.0-16.0); Mean Corpuscular HGB CONC 32.8 g/dL (32.0-36.0); Mean Corpuscular Hemoglobin 29.6 pg (27.0-31.0); Mean Corpuscular Volume 90.5 fL (78.0-98.0); Mean Platelet Volume 10.5 fL (7.4-10.4); Platelet Count 265 10x3/uL (130-400); RBC Distribution Width 13.2 % (11.5-14.5); Red Blood Cell (RBC) Count 4.52 mill/uL (4.20-5.40)
[2024-05-04 15:04] LABS: ALT (SGPT) 15 U/L (8-55); AST (SGOT) 15 U/L (5-34); Albumin 3.4 g/dL (3.4-4.8); Alkaline Phosphatase 47 U/L (40-110); Anion Gap 12 mmol/L (10-20); BUN (Urea Nitrogen) 11 mg/dL (9.8-20.1); Bilirubin, Total 0.4 mg/dL (0.2-1.2); Calc. Creatinine Clearance 0 mL/min (70-130); Calcium 9.1 mg/dL (7.8-10.44); Carbon Dioxide 25 mmol/L (23-31); Chloride 104 mmol/L (98-107); Estimated GFR 81; Globulin 2.8 g/dL (2.4-3.5); Glucose 286 mg/dL (80-115); Potassium 4.2 mmol/L (3.5-5.1); Protein, Total 6.2 g/dL (5.8-8.1); Sodium 137 mmol/L (136-145)
[2024-05-04 15:08] LABS: Troponin I 0.011 ng/mL (< 0.028)
[2024-05-04] MEDS ORDERED: Nitroglycerin 2% Ointment 1 INCH/1 GM Packet ONE (15:38)
[2024-05-04] MEDS ORDERED: Aspirin Chewable 81 MG TAB ONE (15:38)
[2024-05-04 18:56] VITALS: BMI 28.5
[2024-05-04] MEDS ORDERED: Nitroglycerin 0.4 MG TAB (25 Tab Bottle) SL PRN (18:57)
[2024-05-04] MEDS ORDERED: Dextrose 50% Abboject 50 ML SYRINGE SLOW IVP PRN (20:23)
[2024-05-04] MEDS ORDERED: Dextrose 5% in Water 1,000 ML IV PRN (20:23)
[2024-05-04] MEDS ORDERED: Insulin Lispro 100 UNIT/ML 10 ML VIAL SC PRN (20:23)
[2024-05-04] MEDS ORDERED: Glucagon 1 MG/ML KIT IM PRN (20:23)
[2024-05-04] MEDS ORDERED: Ondansetron PF 4 MG/2 ML Vial IVP PRN (20:23)
[2024-05-04] MEDS ORDERED: Ondansetron ODT 4 MG TAB PO PRN (20:23)
[2024-05-04] MEDS ORDERED: hydrALAZINE 20 MG/ML VIAL SLOW IVP PRN (20:31)
[2024-05-04 22:01] LABS: Troponin I 0.335 ng/mL (< 0.028)
[2024-05-05] MEDS: Nitroglycerin 2% Ointment 1 INCH/1 GM Packet TOP SCH (00:15)
[2024-05-05] MEDS: Enoxaparin 80 MG (0.8 mL) SYRINGE SC SCH ×2 (00:16→12:47)
[2024-05-05 03:58] LABS: #Basophils 0.08 10x3/uL (0.0-0.2); %Eosinophils 3.3 % (0.0-10.0); %Lymphocytes 32.6 % (21.0-51.0); %Monocytes 10.1 % (0.0-10.0); %Neutrophils 52.6 % (42.0-75.0); Hematocrit 39.5 % (36.0-47.0); Hemoglobin 12.8 g/dL (12.0-16.0); Mean Corpuscular HGB CONC 32.4 g/dL (32.0-36.0); Mean Corpuscular Volume 92.5 fL (78.0-98.0); Mean Platelet Volume 10.4 fL (7.4-10.4); Platelet Count 253 10x3/uL (130-400); RBC Distribution Width 13.2 % (11.5-14.5); Red Blood Cell (RBC) Count 4.27 mill/uL (4.20-5.40)
[2024-05-05 04:15] LABS: Anion Gap 9 mmol/L (10-20); BUN (Urea Nitrogen) 13 mg/dL (9.8-20.1); Calc. Creatinine Clearance 93 mL/min (70-130); Calcium 8.4 mg/dL (7.8-10.44); Carbon Dioxide 26 mmol/L (23-31); Chloride 108 mmol/L (98-107); Estimated GFR 94; Glucose 183 mg/dL (80-115); Potassium 3.9 mmol/L (3.5-5.1); Sodium 139 mmol/L (136-145)
[2024-05-05] MEDS: Aspirin Chewable 81 MG TAB PO SCH (09:47)
[2024-05-05] MEDS: Isosorbide Mononitrate 30 MG ER.TAB PO SCH (09:47)
[2024-05-05] MEDS: Clopidogrel Bisulfate 300 MG TAB PO SCH (09:47)
[2024-05-05] MEDS: Valsartan 80 MG TAB PO SCH (09:47)
[2024-05-05] MEDS: Insulin Lispro 100 UNIT/ML 10 ML VIAL SC PRN (12:48)
[2024-05-05] MEDS: Rosuvastatin 10 MG TAB PO SCH (21:05)
[2024-05-06] MEDS: Clopidogrel Bisulfate 75 MG TAB PO SCH (08:31)
[2024-05-06 12:30] VITALS: BP 146/82; TEMP 97.6
== END 2024-05-06 13:45 | disposition home or self-care (01) ==
LOC: ERS 13:49 → 2SW 18:20
PROVIDERS: ADMIT Student in an Organized Health Care Education/Training Program; ATTEND Student in an Organized Health Care Education/Training Program
DX: R07.89 Other chest pain (principal); I25.10 Atherosclerotic heart disease of native coronary artery without angina pectoris; I10 Essential (primary) hypertension; E11.9 Type 2 diabetes mellitus without complications; Z79.82 Long term (current) use of aspirin; Z79.02 Long term (current) use of antithrombotics/antiplatelets; Z79.899 Other long term (current) drug therapy; Z88.5 Allergy status to narcotic agent; Z88.2 Allergy status to sulfonamides; Z88.8 Allergy status to other drugs, medicaments and biological substances; Z79.4 Long term (current) use of insulin
CPT/HCPCS: 71045; 80048; 80053; 82962 ×3; 83690; 83880; 84484 ×2; 85025 ×2; 93005; 96372 ×2; 99285; G0378 ×3; J1650 ×2; J1815; 36415; 36416

== ENCOUNTER 2024-06-08 11:39 | Outpatient (CLI) | payer MEDICARE | END 2024-06-08 11:40 | disposition home or self-care (01) | LOC: BICMAMMO 11:39 | PROVIDERS: ATTEND Family Medicine | DX: Z12.31 Encounter for screening mammogram for malignant neoplasm of breast (principal) | CPT/HCPCS: 77063; 77067 ==

== ENCOUNTER 2025-06-19 12:48 | Outpatient (CLI) | payer MEDICARE | END 2025-06-19 12:49 | disposition home or self-care (01) | LOC: BICMAMMO 12:48 | PROVIDERS: ATTEND Family Medicine | DX: Z12.31 Encounter for screening mammogram for malignant neoplasm of breast (principal) | CPT/HCPCS: 77063; 77067 ==